=== PATIENT | male | born 1985 | race Caucasian/White ===

== ENCOUNTER → 2017-10-25 | Outpatient (CLI) | payer OTHER ==
[~2017-10-25] MED LIST: AMOXICILLIN500 M2 PO; AVIDOXY100 MG PO; BACTROBAN CREAM15 GM T; CATAFLAM50 MG PO; HYDROCODONE BIT1 T11 PO; MOTRIN800 MG PO; NKHM; NORCO 325 MG-51 TAB PO; PEN-VEE K500 MG PO; PRILOSEC10 M2 PO; TRAMADOL HCL50 MG PO; VICODIN 5/500 505 MG PO; VICODIN 500 MG-1 TAB PO; ZOFRAN ODT4 MG SL; Zofran4 MG PO
== END | disposition home or self-care (01) ==
LOC: RAD 11:41
DX: R10.10 Upper abdominal pain, unspecified (principal); R11.10 Vomiting, unspecified; R10.13 Epigastric pain; R10.33 Periumbilical pain; Z90.49 Acquired absence of other specified parts of digestive tract; Z98.890 Other specified postprocedural states

== ENCOUNTER 2017-10-27 02:00 | Emergency (ER) | payer OTHER ==
[~2017-10-27] VITALS: Wt 87.5 kg
[2017-10-27 02:00] VITALS: BP 129/85
[~2017-10-27 02:00] MED LIST changes: -AMOXICILLIN500 M2 PO; -PRILOSEC10 M2 PO
[2017-10-27] MEDS ORDERED: PRILOSEC10 M2 PO (02:01)
[2017-10-27] MEDS ORDERED: AMOXICILLIN500 M2 PO (02:14)
== END 2017-10-27 02:50 | disposition home or self-care (01) ==
LOC: ED 02:00
DX: R59.0 Localized enlarged lymph nodes (principal); F17.200 Nicotine dependence, unspecified, uncomplicated; F10.10 Alcohol abuse, uncomplicated; Z91.013 Allergy to seafood; Z79.899 Other long term (current) drug therapy

== ENCOUNTER → 2018-05-04 | Outpatient (CLI) | payer OTHER ==
[~2018-05-04] MED LIST changes: +AMOXICILLIN500 M2 PO; +ANUSOL HC30 GM PO; +PRILOSEC10 M2 PO
== END | disposition home or self-care (01) ==
LOC: US 05:44
DX: K76.0 Fatty (change of) liver, not elsewhere classified (principal); N32.89 Other specified disorders of bladder; Z90.49 Acquired absence of other specified parts of digestive tract

== ENCOUNTER 2018-06-24 09:03 | Emergency (ER) | payer MEDICAID ==
[~2018-06-24] VITALS: Ht 177.8 cm; Wt 95.3 kg
[~2018-06-24 09:03] MED LIST changes: -ANUSOL HC30 GM PO
[2018-06-24 09:07] VITALS: BP 134/75
[2018-06-24] MEDS ORDERED: ANUSOL HC30 GM PO (09:59)
== END 2018-06-24 10:00 | disposition home or self-care (01) ==
LOC: ED 09:03
DX: K64.5 Perianal venous thrombosis (principal); Z88.1 Allergy status to other antibiotic agents; Z79.899 Other long term (current) drug therapy

== ENCOUNTER → 2020-11-12 | Outpatient (CLI) | payer OTHER ==
[~2020-11-12] MED LIST changes: +ANUSOL HC30 GM PO
== END | disposition home or self-care (01) ==
LOC: RAD 08:10
PROVIDERS: ATTEND Nurse Practitioner Family
DX: M25.512 Pain in left shoulder (principal)